=== PATIENT | male | born 1995 | race Caucasian/White ===

== ENCOUNTER 2017-04-22 00:12 | Emergency (ER) | payer OTHER ==
[~2017-04-22] VITALS: Ht 180.3 cm; Wt 79.5 kg
[2017-04-22 00:13] VITALS: BP 134/75; PULSE 73; RESP 16; TEMP 98.1; O2SAT 100
--- NOTE | 2017-04-22 01:24 | PD ---
HPI Chief Complaint: Skin Problem Time Seen by Provider: 01:05 Travel History International Travel<30 days: No Contact w/Intl Traveler<30days: No Traveled to known affect area: No History of Present Illness HPI 22-year-old male presents to the emergency department for localized swelling of the left upper eyelid. Patient states symptoms improved present over the past several days and yesterday he tried to squeeze up pimple or a stye and noticed increased swelling today. Patient's had no fever no chills no nausea no vomiting and no change in vision. Patient does wear eyeglasses. Patient denies any foreign body sensation tearing or drainage from the eye. Patient's tetanus status is current within the past 10 years. Patient is not diabetic. Patient's had no fever or chills. Patient rates pain 8/10 in intensity with palpation of the left upper eyelid at the area of soft tissue swelling. PFSH Past Medical History Narrative Medical Thalassemia, asthma, dental extraction; no tobacco use; nursing notes reviewed Anemia: Yes Asthma: Yes ( A CHILD) Blood Disorders: Yes (thalassemia) Diminished Hearing: No Tetanus Vaccination: > 5 Years Past Surgical History Surgical History: No Previous Surgery Oral Surgery: Yes (WISDOM TEETH) Social History Alcohol Use: No Tobacco Use: No Substance Use: No Allergies-Medications (Allergen,Severity, Reaction): Coded Allergies: No Known Allergies (Unverified , 04/22/17) Review of Systems Except as stated in HPI: all other systems reviewed are Neg General / Constitutional: No: Fever, Chills Eyes: Positive: Other (eyelid swelling), No: Visual changes HENT: No: Headaches, Congestion Cardiovascular: No: Chest Pain or Discomfort Respiratory: No: Shortness of Breath Gastrointestinal: No: Vomiting Skin: Positive Rash, Positive Lumps Neurologic: No: Weakness Psychiatric: No: Anxiety Hematologic/Lymphatic: No: Lymph Node Enlargement Physical Exam Narrative GENERAL: Well-developed well-nourished pleasant male in no acute distress no respiratory distress SKIN: Warm and dry. HEAD: Normocephalic. EYES: No scleral icterus. No injection or drainage. Attention left upper eyelid with area of soft tissue swelling central pointing and small scab in place where patient attempted to express drainage. Bilateral pupils equal round reactive to light extraocular muscles are intact. Fluorescein staining there is no fluorescein uptake of the left eye. NECK: Supple, trachea midline. No JVD or lymphadenopathy. CARDIOVASCULAR: Regular rate and rhythm without murmurs, gallops, or rubs. RESPIRATORY: Breath sounds equal bilaterally. No accessory muscle use. GASTROINTESTINAL: Abdomen soft, non-tender, nondistended. MUSCULOSKELETAL: No cyanosis, or edema. BACK: Nontender without obvious deformity. No CVA tenderness. Data Data Last Documented VS Vital Signs Date Time Temp Pulse Resp B/P (MAP) Pulse Ox O2 Delivery O2 Flow Rate FiO2 04/22/17 00:13 98.1 73 16 134/75 (94) 100 Room Air Orders Orders Wound Culture And Gram Stain (04/22/17 01:05) Erythromycin 0.5% Opth Oint (Ilotycin 0. (04/22/17 01:30) Wound Care (04/22/17 01:22) Sulfamet-Trimeth Ds 800-160 Mg (Bactrim (04/22/17 01:30) Ibuprofen (Motrin) (04/22/17 01:30) Ed Discharge Order (04/22/17 02:14) [facility] Medical Decision Making Medical Screen Exam Complete: Yes Emergency Medical Condition: Yes Medical Record Reviewed: Yes Differential Diagnosis abscess, cellulitis, stye Narrative Course After informed consent to unroof the scab on the left eyelid Ilotycin ointment was applied to the surface of the scab and moist compress applied as well; site was reassessed and using an 18-gauge blunted needle was used to unroof the intact eschar with drainage of copious amounts of purulent contents from the eyelid culture was obtained and sent for C&S. Patient was given oral Bactrim DS times one dose and Motrin 800 mg times one dose and Ilotycin ointment applied to the site. Patient reported improvement of discomfort and stable for outpatient management with recommendation for close follow-up with his career development associate also provided on-call career development associate information Diagnosis Primary Impression: Eyelid abscess Qualified Codes: H00.036 - Abscess of eyelid left eye, unspecified eyelid Additional Impression: Eyelid cellulitis Qualified Codes: H00.036 - Abscess of eyelid left eye, unspecified eyelid Referrals: [employer] 1 day Patient Instructions: General Instructions Departure Forms: Tests/Procedures, Work Release Special Instructions: no work x 1 day Additional Instructions: Apply warm compresses intermittently to left upper eyelid and alternate with ice pack to the left forehead area Monitor temperature every 4 hours with thermometer take acetaminophen/Tylenol every 4 hours for fever 100.4F or greater Take ibuprofen 600 mg as often as every 6 hours for fever 100.4F or greater Apply eye ointment every 3 hours Take antibiotic Bactrim twice daily as prescribed Follow-up with career development associate times one day Return to the emergency department for any concerns or change in condition Med/Other Pt SpecificInfo: Prescription(s) given Scripts Erythromycin Opth Oint (Erythromycin Opth Oint) 5 Mg/Gm Oint 1 APPLIC LEFT EYE QID for Infection, #1 TUBE 0 Refills Prov: Moira Clarke MD 04/22/17 Sulfamethoxazole-Trimethoprim (Bactrim DS) 800-160 Mg Tab 1 TAB PO BID for Infection, #20 TAB 0 Refills Prov: Moira Clarke MD 04/22/17 Disposition: 01 DISCHARGE HOME Condition: Stable Moira Clarke MD Apr 22, 2017 01:24
[2017-04-22] MEDS ORDERED: IBUPROFEN 800 MG TAB PO ONE (01:30)
[2017-04-22] MEDS ORDERED: ERYTHROMYCIN 0.5% OPTH OINT 3.5 GM TUBO LEFT EYE ONE (01:30)
[2017-04-22] MEDS ORDERED: SULFAMETHOXAZOLE-TRIMETHOPRIM DS 800-160 MG TAB PO ONE (01:30)
[2017-04-22] MEDS ORDERED: ERYTOIN10 LEFT EYE (02:51)
[2017-04-22] MEDS ORDERED: BACT800T5 PO (02:51)
== END 2017-04-22 03:01 | disposition home or self-care (01) ==
LOC: NEPC 00:12
DX: H00.034 Abscess of left upper eyelid (principal); B95.62 Methicillin resistant Staphylococcus aureus infection as the cause of diseases classified elsewhere
CPT/HCPCS: 10160; 86403; 87070; 87186